=== PATIENT | female | born 1960 | race African-American/Black ===

== ENCOUNTER 2021-09-06 14:26 | Emergency (ER) | payer MEDICARE, MEDICAID ==
[~2021-09-06] VITALS: Ht 162.6 cm; Wt 63.0 kg
[2021-09-06 14:45] VITALS: BP 136/68
[2021-09-06] MEDS ORDERED: FAMOTIDINE 20MG TABLET PO ONE (15:00)
[2021-09-06] MEDS ORDERED: DIPHENHYDRAMINE 25MG CAPSULE PO ONE (15:00)
[2021-09-06] MEDS ORDERED: TETANUS, DIPHTHERIA, PERTUSSIS VAC/PF 0.5ML (>10YR OLD) IM ONE (15:15)
[2021-09-06] MEDS ORDERED: BACITRACIN ZINC OINT UDPKT TOP ONE (15:15)
[2021-09-06] MEDS ORDERED: FAMO-135 MT (16:39)
[2021-09-06] MEDS ORDERED: CEPH500T MT (16:39)
[2021-09-06] MEDS ORDERED: DIPH25CA83 MT (16:39)
== END 2021-09-06 17:24 | disposition home or self-care (01) ==
LOC: ER 14:26
DX: T63.441A Toxic effect of venom of bees, accidental (unintentional), initial encounter (principal); Z98.890 Other specified postprocedural states; Z88.5 Allergy status to narcotic agent; Y92.9 Unspecified place or not applicable
CPT/HCPCS: 99283; Q0163